=== PATIENT | male | born 1960 | race Caucasian/White ===

== ENCOUNTER 2024-03-15 14:27 | Inpatient (IN) | payer MEDICAID ==
[~2024-03-15] VITALS: Ht 172.7 cm; Wt 84.1 kg
[2024-03-15 15:10] LABS: HEMATOCRIT. 36.3 % (42.0-52.0); HEMOGLOBIN. 12.7 g/dL (14.0-18.0); MEAN CORPUSCULAR HEMOGLOBIN 32.2 pg (28.0-32.0); MEAN CORPUSCULAR HGB CONC 35.1 g/dL (31.0-37.0); MEAN CORPUSCULAR VOLUME 91.8 fL (80.0-94.0); MEAN PLATELET VOLUME 9.1 fl (7.4-10.4); PLATELET 138 x1000/uL (130-400); RED BLOOD CELL COUNT 3.95 mill/uL (4.7-6.1); RED CELL DISTRIBUTION WIDTH 12.9 % (11.6-14.6); WHITE BLOOD COUNT 16.9 x1000/uL (4.5-11.0)
[2024-03-15 15:15] LABS: CHLORIDE 97 mEq/L (98-107); SODIUM 136 mEq/L (136-145)
[2024-03-15 15:16] LABS: CALCIUM 9.7 mg/dL (8.7-10.4); CARBON DIOXIDE 27 mEq/L (21-32)
[2024-03-15 15:18] LABS: INR 1.2; PROTHROMBIN TIME 13.3 sec (9.6-11.0)
[2024-03-15] MEDS: ONDANSETRON HCL 4MG/2ML INJ IV STA (15:20)
[2024-03-15] MEDS: MORPHINE SULFATE 4 MG/ML INJ (FOR IV/IM USE) IV STA (15:20)
[2024-03-15 15:21] LABS: GLUCOSE 163 mg/dL (70-105); UREA NITROGEN BLOOD 42 mg/dL (9-23)
[2024-03-15 15:22] LABS: DIFFERENTIAL COMMENT 1; TROPONIN I HIGH SENSITIVITY 22 ng/L (3.0-53)
[2024-03-15 15:23] LABS: ALANINE AMINOTRANSFERASE 229 IU/L (10-49); ALBUMIN 4.6 g/dL (3.2-4.8); ASPARTATE AMINOTRANSFERASE 258 IU/L (<34); BILIRUBIN TOTAL 2.2 mg/dL (0.1-1.0); PROTEIN TOTAL 7.7 g/dL (6.0-8.3)
[2024-03-15 15:33] LABS: CREATININE 5.5 mg/dL (0.6-1.3)
[2024-03-15 16:00] LABS: PLATELET ESTIMATE NORMAL
[2024-03-15] MEDS: SODIUM CHLORIDE 0.9% 1,000 ML IV ONE ×2 (16:13→18:37)
[2024-03-15 16:33] LABS: INR 1.2; PROTHROMBIN TIME 13.6 sec (9.6-11.0)
[2024-03-15] MEDS: ACETAMINOPHEN 325MG TABLET PO ONE (16:53)
[2024-03-15] MEDS: CEFTRIAXONE 1GM/50ML 50 ML IV ONE (16:56)
[2024-03-15] MEDS: SODIUM CHLORIDE 0.9% 100 ML IV ONE (16:56)
[2024-03-15] MEDS ORDERED: MORPHINE SULFATE 2 MG/ML CPJ (NOT FOR IM USE) IV PRN (19:45)
[2024-03-15] MEDS ORDERED: IPRATROPIUM/ALBUTEROL 0.5-3(2.5)MG/3ML NEB HHN PRN (19:45)
[2024-03-15] MEDS: DEXT 5%/0.9% NACL 1,000 ML IV SCH (21:29)
[2024-03-15] MEDS: KCL 20MEQ/100ML PREMIX 100 ML IV SCH (21:45)
[2024-03-16 00:15] VITALS: BP 120/70; PULSE 117; RESP 22; TEMP 98.4
[2024-03-16] MEDS: ONDANSETRON HCL 4MG/2ML INJ IV PRN (00:50)
[2024-03-16] MEDS: DIPHENHYDRAMINE 50MG/ML VIAL IV PRN (01:08)
[2024-03-16] MEDS ORDERED: DEXTROSE 50% WATER 50ML SYRINGE IV PRN (02:00)
[2024-03-16] MEDS: KCL 20MEQ/100ML PREMIX 100 ML IV SCH (04:17)
[2024-03-16 04:28] LABS: CLARITY URINE CLEAR (CLEAR); COLOR URINE DARK YELLOW (YELLOW); GLUCOSE URINE 1+ (NEGATIVE); KETONES URINE NEGATIVE (NEGATIVE); LEUKOCYTE ESTERASE URINE 1+ (NEGATIVE); NITRITE URINE NEGATIVE (NEGATIVE); OCCULT BLOOD URINE 1+ (NEGATIVE); PH URINE 8.5 (4.5-8.0); PROTEIN URINE 3+ (NEGATIVE); SPECIFIC GRAVITY URINE 1.016 (1.005-1.030)
[2024-03-16 04:29] VITALS: BP 120/68; PULSE 105; RESP 18; TEMP 99
[2024-03-16 05:01] LABS: SQUAMOUS EPITHELIAL CELL URINE FEW /lpf (RARE/1+); WBC URINE 25-50 /hpf (0-2)
[2024-03-16 05:02] LABS: RBC URINE 0-2 /hpf (0-2)
[2024-03-16 05:04] LABS: BACTERIA URINE TRACE
[2024-03-16] MEDS: BLOOD SUGAR DIAGNOSTIC STRIP TEST SCH (06:44)
[2024-03-16] MEDS: INSULIN LISPRO 100 UNITS/ML SUBCUT SCH (07:20)
[2024-03-16 08:00] VITALS: BP 132/82; PULSE 105; RESP 18; TEMP 99
[2024-03-16 09:48] LABS: HEMATOCRIT. 34.9 % (42.0-52.0); HEMOGLOBIN. 11.9 g/dL (14.0-18.0); MEAN CORPUSCULAR HGB CONC 34.2 g/dL (31.0-37.0); MEAN PLATELET VOLUME 9.4 fl (7.4-10.4); PLATELET 119 x1000/uL (130-400); RED BLOOD CELL COUNT 3.73 mill/uL (4.7-6.1); RED CELL DISTRIBUTION WIDTH 12.9 % (11.6-14.6)
[2024-03-16 09:53] LABS: DIFFERENTIAL COMMENT 1; MEAN CORPUSCULAR VOLUME 93.5 fL (80.0-94.0)
[2024-03-16 10:32] LABS: CHLORIDE 99 mEq/L (98-107); POTASSIUM 4.2 mEq/L (3.5-5.1); SODIUM 135 mEq/L (136-145)
[2024-03-16 10:33] LABS: CARBON DIOXIDE 27 mEq/L (21-32)
[2024-03-16 10:38] LABS: GLUCOSE 163 mg/dL (70-105); UREA NITROGEN BLOOD 46 mg/dL (9-23)
[2024-03-16 10:40] LABS: ALANINE AMINOTRANSFERASE 232 IU/L (10-49); ALBUMIN 3.9 g/dL (3.2-4.8); ASPARTATE AMINOTRANSFERASE 155 IU/L (<34)
[2024-03-16 10:41] LABS: BILIRUBIN TOTAL 3.3 mg/dL (0.1-1.0); PROTEIN TOTAL 6.6 g/dL (6.0-8.3)
[2024-03-16 10:55] LABS: PLATELET ESTIMATE SLIGHTLY DECREASED
[2024-03-16 11:02] LABS: CREATININE 5.7 mg/dL (0.6-1.3)
[2024-03-16 12:00] VITALS: BP 115/78; PULSE 89; RESP 18; TEMP 98.6
[2024-03-16] MEDS ORDERED: NALOXONE HCL 0.4MG/ML VIAL IV PRN (14:00)
[2024-03-16 16:00] VITALS: BP 114/70; PULSE 85; RESP 14; TEMP 99
[2024-03-16] MEDS ORDERED: CEFTRIAXONE 1GM/50ML 50 ML IV SCH ×2 (17:00→18:00)
[2024-03-16] MEDS: METOCLOPRAMIDE HCL 10MG/2ML VIAL IV SCH (17:27)
[2024-03-16] MEDS: SUCRALFATE 1G TABLET PO SCH (17:27)
[2024-03-16] MEDS ORDERED: CEFEPIME 1GM IN DEXT 5% 50ML IV SCH (17:30)
[2024-03-16 20:00] VITALS: BP 102/51; PULSE 93; RESP 18; TEMP 99
[2024-03-16] MEDS: CEFEPIME 1GM/50ML 50 ML IV SCH (20:00)
[2024-03-16] MEDS: METRONIDAZOLE 500MG TABLET PO SCH (21:38)
[2024-03-17] VITALS: BP 143/79; PULSE 80; RESP 15; TEMP 98.8
[2024-03-17 04:00] VITALS: BP 102/62; PULSE 76; RESP 15; TEMP 98
[2024-03-17 06:27] LABS: BASOPHILS % 0.1 % (0.0-2.0); EOSINOPHILS % 2.3 % (0.0-5.0); HEMATOCRIT. 30.9 % (42.0-52.0); HEMOGLOBIN. 10.9 g/dL (14.0-18.0); LYMPHOCYTES % 10.8 % (20.0-50.0); MEAN CORPUSCULAR HEMOGLOBIN 32.6 pg (28.0-32.0); MEAN CORPUSCULAR HGB CONC 35.2 g/dL (31.0-37.0); MEAN CORPUSCULAR VOLUME 92.4 fL (80.0-94.0); MEAN PLATELET VOLUME 9.4 fl (7.4-10.4); MONOCYTES % 5.1 % (2.0-8.0); NEUTROPHILS % 81.7 % (40.0-76.0); PLATELET 121 x1000/uL (130-400); RED BLOOD CELL COUNT 3.34 mill/uL (4.7-6.1); WHITE BLOOD COUNT 13.4 x1000/uL (4.5-11.0)
[2024-03-17 06:46] LABS: CHLORIDE 98 mEq/L (98-107); POTASSIUM 3.3 mEq/L (3.5-5.1); SODIUM 134 mEq/L (136-145)
[2024-03-17 06:47] LABS: CALCIUM 8.7 mg/dL (8.7-10.4); CARBON DIOXIDE 27 mEq/L (21-32)
[2024-03-17 06:52] LABS: BILIRUBIN TOTAL 3.2 mg/dL (0.1-1.0); GLUCOSE 147 mg/dL (70-105); UREA NITROGEN BLOOD 58 mg/dL (9-23)
[2024-03-17 06:54] LABS: ALANINE AMINOTRANSFERASE 160 IU/L (10-49); ALBUMIN 3.9 g/dL (3.2-4.8); AMYLASE 524 IU/L (30-118); ASPARTATE AMINOTRANSFERASE 79 IU/L (<34); BILIRUBIN DIRECT 2.3 mg/dL (<=3.0)
[2024-03-17 06:55] LABS: PROTEIN TOTAL 6.6 g/dL (6.0-8.3)
[2024-03-17 06:58] LABS: CREATININE 6.1 mg/dL (0.6-1.3)
[2024-03-17 08:00] VITALS: BP 123/68; PULSE 72; RESP 18; TEMP 98.3
[2024-03-17] MEDS ORDERED: ATOR40TA70 PO (10:35)
[2024-03-17] MEDS ORDERED: ASPI-1406 PO (10:35)
[2024-03-17] MEDS ORDERED: CALC0.253 PO (10:35)
[2024-03-17 12:00] VITALS: BP 104/66; PULSE 72; RESP 18; TEMP 98
[2024-03-17 16:00] VITALS: BP 115/71; PULSE 86; RESP 18; TEMP 97.8
[2024-03-17 20:00] VITALS: BP 146/85; PULSE 80; RESP 19; TEMP 99
[2024-03-18] VITALS (14 sets, daily range): BP systolic 88–154; BP diastolic 54–96; PULSE 67–97; RESP 12–18; TEMP 98–99
[2024-03-18 07:20] LABS: BASOPHILS % 0.4 % (0.0-2.0); EOSINOPHILS % 2.7 % (0.0-5.0); HEMATOCRIT. 32.1 % (42.0-52.0); HEMOGLOBIN. 11.3 g/dL (14.0-18.0); LYMPHOCYTES % 13.3 % (20.0-50.0); MEAN CORPUSCULAR HEMOGLOBIN 32.5 pg (28.0-32.0); MEAN CORPUSCULAR HGB CONC 35.2 g/dL (31.0-37.0); MEAN CORPUSCULAR VOLUME 92.1 fL (80.0-94.0); MEAN PLATELET VOLUME 9.3 fl (7.4-10.4); MONOCYTES % 5.4 % (2.0-8.0); NEUTROPHILS % 78.2 % (40.0-76.0); PLATELET 137 x1000/uL (130-400); RED BLOOD CELL COUNT 3.49 mill/uL (4.7-6.1); RED CELL DISTRIBUTION WIDTH 13.2 % (11.6-14.6); WHITE BLOOD COUNT 9.6 x1000/uL (4.5-11.0)
[2024-03-18 07:51] LABS: CHLORIDE 99 mEq/L (98-107); SODIUM 135 mEq/L (136-145)
[2024-03-18 07:53] LABS: CARBON DIOXIDE 25 mEq/L (21-32)
[2024-03-18 07:54] LABS: CALCIUM 8.6 mg/dL (8.7-10.4)
[2024-03-18 07:59] LABS: GLUCOSE 97 mg/dL (70-105); UREA NITROGEN BLOOD 61 mg/dL (9-23)
[2024-03-18 08:00] LABS: ALANINE AMINOTRANSFERASE 154 IU/L (10-49); ALBUMIN 3.9 g/dL (3.2-4.8); AMYLASE 213 IU/L (30-118); ASPARTATE AMINOTRANSFERASE 95 IU/L (<34)
[2024-03-18 08:01] LABS: BILIRUBIN DIRECT 2.1 mg/dL (<=3.0); PROTEIN TOTAL 6.6 g/dL (6.0-8.3)
[2024-03-18 08:14] LABS: CREATININE 5.6 mg/dL (0.6-1.3)
[2024-03-18 08:22] LABS: BILIRUBIN TOTAL 2.9 mg/dL (0.1-1.0)
[2024-03-18] MEDS: POLYETHYLENE GLYCOL 3350 (17GM) 1 DOSE PACK PO NR (17:13)
[2024-03-18] MEDS: LACTULOSE 20G/30ML UDC PO SCH (17:13)
[2024-03-18 20:36] LABS: HEPATITIS B SURFACE ANTIGEN NEGATIVE (Negative)
[2024-03-18 20:56] LABS: HEPATITIS A AB IGM NEGATIVE (Negative)
[2024-03-18 20:57] LABS: HEPATITIS B CORE AB IGM NEGATIVE (Negative); HEPATITIS C AB NON REACTIVE (Neg) (Negative)
[2024-03-19] VITALS: BP 127/86; PULSE 79; RESP 16; TEMP 98
[2024-03-19 04:00] VITALS: BP 112/76; PULSE 71; RESP 14; TEMP 98.1
[2024-03-19 06:46] LABS: CHLORIDE 97 mEq/L (98-107); POTASSIUM 3.2 mEq/L (3.5-5.1); SODIUM 132 mEq/L (136-145)
[2024-03-19 06:47] LABS: CALCIUM 8.7 mg/dL (8.7-10.4); CARBON DIOXIDE 25 mEq/L (21-32)
[2024-03-19 06:52] LABS: CREATININE 4.1 mg/dL (0.6-1.3); GLUCOSE 143 mg/dL (70-105); UREA NITROGEN BLOOD 27 mg/dL (9-23)
[2024-03-19 06:53] LABS: AMYLASE 194 IU/L (30-118)
[2024-03-19 06:54] LABS: ALANINE AMINOTRANSFERASE 126 IU/L (10-49); ALBUMIN 3.8 g/dL (3.2-4.8); ASPARTATE AMINOTRANSFERASE 72 IU/L (<34); BILIRUBIN DIRECT 1.7 mg/dL (<=3.0); BILIRUBIN TOTAL 2.6 mg/dL (0.1-1.0); PROTEIN TOTAL 6.7 g/dL (6.0-8.3)
[2024-03-19 07:05] LABS: BASOPHILS % 0.4 % (0.0-2.0); EOSINOPHILS % 4.6 % (0.0-5.0); HEMATOCRIT. 31.8 % (42.0-52.0); HEMOGLOBIN. 11.2 g/dL (14.0-18.0); LYMPHOCYTES % 15.9 % (20.0-50.0); MEAN CORPUSCULAR HEMOGLOBIN 32.9 pg (28.0-32.0); MEAN CORPUSCULAR HGB CONC 35.2 g/dL (31.0-37.0); MEAN CORPUSCULAR VOLUME 93.3 fL (80.0-94.0); MEAN PLATELET VOLUME 8.7 fl (7.4-10.4); MONOCYTES % 8.5 % (2.0-8.0); NEUTROPHILS % 70.6 % (40.0-76.0); PLATELET 154 x1000/uL (130-400); RED BLOOD CELL COUNT 3.41 mill/uL (4.7-6.1); WHITE BLOOD COUNT 7.1 x1000/uL (4.5-11.0)
[2024-03-19 08:00] VITALS: BP 107/71; PULSE 93; RESP 20; TEMP 98
[2024-03-19 12:00] VITALS: BP 124/62; PULSE 70; PULSE 76; RESP 16; RESP 18; TEMP 98; TEMP 98.4
[2024-03-19] MEDS ORDERED: LEVO250T74 MT (12:39)
[2024-03-19 14:35] VITALS: BP 142/91; PULSE 85; TEMP 98.5; O2SAT 99
== END 2024-03-19 16:38 | disposition home or self-care (01) | DRG 720 ==
LOC: ER 14:33 → 3WST 16:04 → EDBEDREQ 16:08
PROVIDERS: ADMIT Internal Medicine; ATTEND Internal Medicine
PROC: 5A1D70Z Performance of Urinary Filtration, Intermittent, Less than 6 Hours Per Day (ICD-10-PCS; principal; 2024-03-18)
DX: A41.9 Sepsis, unspecified organism (principal); K85.10 Biliary acute pancreatitis without necrosis or infection; I12.0 Hypertensive chronic kidney disease with stage 5 chronic kidney disease or end stage renal disease; N18.6 End stage renal disease; E11.319 Type 2 diabetes mellitus with unspecified diabetic retinopathy without macular edema; E11.22 Type 2 diabetes mellitus with diabetic chronic kidney disease; K80.70 Calculus of gallbladder and bile duct without cholecystitis without obstruction; E11.51 Type 2 diabetes mellitus with diabetic peripheral angiopathy without gangrene; E87.6 Hypokalemia; K40.90 Unilateral inguinal hernia, without obstruction or gangrene, not specified as recurrent; K52.9 Noninfective gastroenteritis and colitis, unspecified; N39.0 Urinary tract infection, site not specified; N40.0 Benign prostatic hyperplasia without lower urinary tract symptoms; K57.30 Diverticulosis of large intestine without perforation or abscess without bleeding; E80.6 Other disorders of bilirubin metabolism; N20.0 Calculus of kidney; J84.9 Interstitial pulmonary disease, unspecified; R74.01 Elevation of levels of liver transaminase levels; K82.8 Other specified diseases of gallbladder; R74.8 Abnormal levels of other serum enzymes; Z99.2 Dependence on renal dialysis; Z79.82 Long term (current) use of aspirin; Z79.899 Other long term (current) drug therapy
CPT/HCPCS: 36415; 71045; 74176; 74181; 76705; 78227; 80048; 80053; 80076; 81003; 82150; 82248; 82962; 83036; 83605; 83735; 84100; 84145; 84478; 84484; 85025; 86705; 86709; 87340; 90935; 93005; 93970; 99291; A9537; J0692; J0696; J1200; J1815; J2270; J2405; J2765; J3480; J7030; J7050